=== PATIENT | female | born 1945 | race Caucasian/White ===

== ENCOUNTER 2017-03-22 05:07 | Outpatient (CLI) | payer MEDICARE ==
[~2017-03-22 05:07] MED LIST: ATOR40TA PO; CALC-1197 PO; CHOL400T32 PO; DULO-31 PO; METF500T PO; VERA300C2 PO
== END 2017-03-22 23:59 | disposition home or self-care (01) ==
LOC: DIABETIC 05:07
PROVIDERS: ATTEND Family Medicine
DX: E11.9 Type 2 diabetes mellitus without complications (principal); I10 Essential (primary) hypertension
CPT/HCPCS: G0108

== ENCOUNTER 2017-07-09 04:59 | Outpatient (CLI) | payer MEDICARE | END 2017-07-09 23:59 | disposition home or self-care (01) | LOC: DIABETIC 04:59 | PROVIDERS: ATTEND Family Medicine | DX: E11.9 Type 2 diabetes mellitus without complications (principal); R94.31 Abnormal electrocardiogram [ECG] [EKG]; I10 Essential (primary) hypertension | CPT/HCPCS: 93005; G0108 ==

== ENCOUNTER 2017-10-20 00:54 | Outpatient (CLI) | payer MEDICARE | END 2017-10-20 23:59 | disposition home or self-care (01) | LOC: DIABETIC 00:54 | PROVIDERS: ATTEND Family Medicine | DX: E11.9 Type 2 diabetes mellitus without complications (principal); I10 Essential (primary) hypertension; Z79.899 Other long term (current) drug therapy; Z96.651 Presence of right artificial knee joint | CPT/HCPCS: G0108 ==

== ENCOUNTER 2018-02-02 01:50 | Outpatient (CLI) | payer MEDICARE | END 2018-02-02 23:59 | disposition home or self-care (01) | LOC: DIABETIC 01:50 | PROVIDERS: ATTEND Family Medicine | DX: E11.9 Type 2 diabetes mellitus without complications (principal); I10 Essential (primary) hypertension; Z79.84 Long term (current) use of oral hypoglycemic drugs | CPT/HCPCS: G0108 ==

== ENCOUNTER 2018-05-18 03:16 | Outpatient (CLI) | payer MEDICARE | END 2018-05-18 23:59 | disposition home or self-care (01) | LOC: DIABETIC 03:16 | PROVIDERS: ATTEND Family Medicine | DX: E11.9 Type 2 diabetes mellitus without complications (principal); I10 Essential (primary) hypertension; Z79.82 Long term (current) use of aspirin; Z79.84 Long term (current) use of oral hypoglycemic drugs | CPT/HCPCS: G0108 ==

== ENCOUNTER 2018-12-20 00:17 | Outpatient (CLI) | payer MEDICARE ==
[~2018-12-20 00:17] MED LIST changes: -VERA300C2 PO; +VERA300C6 PO
== END 2018-12-20 23:59 | disposition home or self-care (01) ==
LOC: DIABETIC 00:17
PROVIDERS: ATTEND Family Medicine
DX: E11.9 Type 2 diabetes mellitus without complications (principal); I10 Essential (primary) hypertension; Z79.84 Long term (current) use of oral hypoglycemic drugs; Z79.82 Long term (current) use of aspirin; Z79.899 Other long term (current) drug therapy
CPT/HCPCS: G0108

== ENCOUNTER 2019-03-21 04:05 | Outpatient (CLI) | payer MEDICARE | END 2019-03-21 23:59 | disposition home or self-care (01) | LOC: DIABETIC 04:05 | PROVIDERS: ATTEND Family Medicine | DX: E11.9 Type 2 diabetes mellitus without complications (principal) | CPT/HCPCS: G0108 ==